=== PATIENT | female | born 1985 | race Hispanic/Latino ===

== ENCOUNTER 2017-10-27 14:53 | Emergency (ER) | payer BC ==
--- NOTE | 2017-10-27 15:53 | RAD REPORT ---
EXAM DESCRIPTION: CT - Head Brain Wo Cont - 10/27/2017 3:45 pm CLINICAL HISTORY: Numbness and dizziness COMPARISON: None. TECHNIQUE: Computed axial tomography of the head was obtained. IV contrast was not requested. All CT scans are performed using dose optimization technique as appropriate and may include automated exposure control or mA/KV adjustment according to patient size. FINDINGS: An intracranial bleed is not seen . The ventricles are normal in caliber. No extra-axial fluid collection is noted. Fluid within the sinuses/ mastoids is not seen. IMPRESSION: No acute intracranial abnormality is seen. If patient's symptoms persist MRI of the bra in would be recommended.
[2017-10-27] MEDS ORDERED: MECLIZINE HCL 12.5 MG TAB ONE (16:06)
[2017-10-27] MEDS ORDERED: NA CHLORIDE 0.9% 1,000 ML ONE ×2 (16:06→16:46)
[2017-10-27 16:24] LABS: Absolute Lymphocytes (CBC) 1.7 K/uL (0.7-4.9); Absolute Monocytes 0.5 K/uL (0.1-1.3); Absolute Neutrophil 5.4 K/uL (1.8-8.0); Basophils % 0.7 % (0-1.3); Eosinophils % 2.1 % (0-4.4); Hematocrit 43.6 % (36.0-45.0); Lymphocytes % 22.2 % (15.3-44.8); MCH 29.3 pg (27.0-35.0); MCV 86.7 fL (80-100); MPV 7.9 fL (7.6-11.3); Monocytes % 6.5 % (3.3-12.3); RBC Red Blood Cell Count 5.03 M/uL (3.86-4.86)
[2017-10-27 16:27] LABS: Urine Blood NEGATIVE (NEG); Urine Glucose NEGATIVE (NEG); Urine Protein NEGATIVE (NEG); Urine Specific Gravity 1.025 (1.005-1.030); Urine pH 6.5 (5.0-7.0)
[2017-10-27 16:32] LABS: Protime INR 0.95
--- NOTE | 2017-10-27 16:34 | RAD REPORT ---
EXAM DESCRIPTION: RAD - Chest Single View - 10/27/2017 4:24 pm CLINICAL HISTORY: Dizziness, cough, shortness of breath, hypertension COMPARISON: August 2009 TECHNIQUE: AP portable chest image was obtained 1611 hours . FINDINGS: Lungs are clear. Heart and vasculature are normal. No measurable pleural effusion and no p neumothorax. No gross bony abnormality seen. No acute aortic findings suspected. IMPRESSION: No acute cardiopulmonary process. No suspicious change from comparison.
[2017-10-27] MEDS ORDERED: cloNIDine HCl 0.1 MG TAB ONE (16:45)
[2017-10-27] MEDS ORDERED: ASPIRIN 81 MG CHEWABLE TABLET ONE (16:46)
[2017-10-27] MEDS ORDERED: ONDANSETRON 4 MG/2 ML VIAL ONE (16:46)
--- NOTE | 2017-10-27 16:53 | RAD REPORT ---
EXAM DESCRIPTION: MRI - Brain Wo Cont - 10/27/2017 4:42 pm CLINICAL HISTORY: Headache, dizziness, left lower extremity numbness and tingling, possible CVA COMPARISON: CT head October 27 TECHNIQUE: Sagittal T1-weighted images were obtained along with axial PD, heavily T2-weighted and T2 -FLAIR images. Axial DWI and ADC mapping sequences were also obtained along with coronal heavily T2-w eighted images. FINDINGS: No intracranial hemorrhage, mass or acute infarction. There is no edema or shift of midlin e structures. No extra-axial fluid collections. Peters-matter/white matter junction is preserved. Signa l voids are seen as a normal finding in the major intracranial vessels. No tonsillar ectopia. No sell a or supra sella abnormality. No white matter signal abnormality seen. No globe or orbital content abnormality. Mastoid air cells and paranasal sinuses are clear. IMPRESSION: Negative non-contrast MRI of the Brain.
[2017-10-27 17:27] LABS: ALT/SGPT 78 U/L (12-78); AST/SGOT 37 U/L (15-37); Albumin 3.6 g/dL (3.4-5.0); Alkaline Phosphatase 146 U/L (45-117); BUN Blood Urea Nitrogen 14 mg/dL (7-18); Bicarbonate 31 mmol/L (21-32); Bilirubin Direct < 0.1 mg/dL (0-0.2); Bilirubin Total 0.3 mg/dL (0.2-1.0); CKMB Creatine Kinase MB < 1.0 ng/mL (0.3-3.6); Creatine Phosphokinase 39 U/L (26-192); Glucose Level 87 mg/dL (74-106); Magnesium 2.1 mg/dL (1.8-2.4); Potassium 3.6 mmol/L (3.5-5.1); Protein, Total 6.8 g/dL (6.4-8.2); Sodium Level 138 mmol/L (136-145)
--- NOTE | 2017-10-27 18:42 | EDPHYS ---
Physician Documentation [facility] Name: Lisa Amor Age: 31 yrs Sex: Female : 1985 Arrival Date: 10/27/2017 Time: 14:56 Bed 23 Private MD: Tyler Gutierrez H ED Physician Rishi Camp HPI: 10/27 15:18 This 31 yrs old Female presents to ER via Ambulatory with complaints of Blood cp Pressure Problem, Vertigo. 15:18 The patient presents with dizziness, lightheadedness. Onset: The symptoms/episode cp began/occurred 2 day(s) ago. Associated signs and symptoms: Pertinent positives: tingling of left foot since yesterday, headache, elevated blood pressure. Severity of symptoms: in the emergency department the symptoms are unchanged despite home interventions. Patient's baseline: Neuro: alert and fully oriented, Motor: no deficits, Ambulation: walks without assistance, Speech: normal. 15:18 Patient reports she has been monitoring blood pressure and observed that it has been cp elevated lately. Historical: - Allergies: 15:23 No Known Allergies; aj1 - Home Meds: 15:23 None [Active]; aj1 - PMHx: 15:23 None; aj1 - PSHx: 15:23 None; aj1 - Immunization history:: Flu vaccine is not up to date. - Social history:: Smoking status: Patient/guardian denies using tobacco. - Ebola Screening: : Patient denies travel to an Ebola-affected area in the 21 days before illness onset. ROS: 15:25 Constitutional: Negative for body aches, chills, fever, poor PO intake. cp 15:25 Eyes: Negative for injury, pain, redness, and discharge. cp 15:25 ENT: Negative for drainage from ear(s), ear pain, sore throat, difficulty swallowing, cp difficulty handling secretions. 15:25 Cardiovascular: Negative for chest pain, edema, palpitations. 15:25 Respiratory: Negative for cough, shortness of breath, wheezing. cp 15:25 Abdomen/GI: Negative for abdominal pain, vomiting, diarrhea, constipation, black/tarry stool, rectal bleeding. 15:25 : Negative for urinary symptoms. 15:25 Skin: Negative for cellulitis, rash. 15:25 Neuro: Positive for dizziness, headache, Negative for gait disturbance, syncope, near syncope, weakness. 15:25 Neuro: Positive for tingling, of the left foot. 15:25 All other systems are negative. Exam: 15:33 Constitutional: The patient appears in no acute distress, alert, awake, non-toxic, well cp developed, well nourished. 15:33 Head/Face: Normocephalic, atraumatic. cp 15:33 Eyes: Pupils equal round and reactive to light, extra-ocular motions intact. Lids and cp lashes normal. Conjunctiva and sclera are non-icteric and not injected. Cornea within normal limits. Periorbital areas with no swelling, redness, or edema. ENT: Nares patent. No nasal discharge, no septal abnormalities noted. Tympanic membranes are normal and external auditory canals are clear. Oropharynx with no redness, swelling, or masses, exudates, or evidence of obstruction, uvula midline. Mucous membranes moist. Neck: Trachea midline, no thyromegaly or masses palpated, and no cervical lymphadenopathy. Supple, full range of motion without nuchal rigidity, or vertebral point tenderness. No Meningismus. Chest/axilla: Normal chest wall appearance and motion. Nontender with no deformity. No lesions are appreciated. 15:33 Cardiovascular: Rate: normal, Rhythm: regular, Pulses: Pulses are 2+ in right radial artery and left radial artery. Heart sounds: murmur, not appreciated, Edema: is not appreciated, JVD: is not appreciated. 15:33 Respiratory: the patient does not display signs of respiratory distress, Respirations: normal, no use of accessory muscles, no retractions, no splinting, no tachypnea, labored breathing, is not present, Breath sounds: are clear throughout, no decreased breath sounds, no stridor, no wheezing. 15:33 Abdomen/GI: Inspection: abdomen appears normal, Bowel sounds: active, all quadrants, Palpation: abdomen is soft and non-tender, in all quadrants, rebound tenderness, is not appreciated, voluntary guarding, is not appreciated, involuntary guarding, is not appreciated. 15:33 Back: pain, is absent, ROM is normal. 15:33 Musculoskeletal/extremity: the left foot Tingling of extremity. 15:33 Skin: cellulitis, is not appreciated, no rash present. 15:33 Neuro: Orientation: to person, place \T\ time. Mentation: lucid, able to follow commands, cp Cerebellar function: is grossly normal, Motor: is normal. 15:42 ECG was reviewed by the Attending Physician. cp Vital Signs: 15:23 BP 170 / 130; Pulse 88; Resp 18; Pulse Ox 99% ; aj1 15:50 BP 153 / 103 Supine; Pulse 80; Resp 18; Pulse Ox 97% ; aj1 15:52 BP 160 / 105 Sitting; Pulse 90; Resp 18; Pulse Ox 99% ; aj1 15:54 BP 153 / 108 Standing; Pulse 95; Resp 20; Pulse Ox 100% ; aj1 16:55 BP 157 / 119; Pulse 54; Resp 18; Pulse Ox 98% on R/A; aj1 18:07 BP 120 / 89; Pulse 81; Resp 18; Pulse Ox 100% on R/A; aj1 19:10 BP 124 / 89; Pulse 90; Resp 18; Pulse Ox 99% ; Pain 0/10; ea MDM: 15:14 Patient medically screened. cp 16:00 Differential diagnosis: cardiac arrhythmia, CVA, generalized weakness, hypovolemia, cp idiopathic dizziness, TIA, vertigo. 18:40 Data reviewed: vital signs, nurses notes, lab test result(s), EKG, radiologic studies, cp CT scan, MRI. 18:40 Test interpretation: by ED physician or midlevel provider: ECG. Counseling: I had a cp detailed discussion with the patient and/or guardian regarding: the historical points, exam findings, and any diagnostic results supporting the discharge/admit diagnosis, the presence of at least one elevated blood pressure reading (>120/80) during this emergency department visit, lab results, radiology results, the need for outpatient follow up, a family practitioner, to return to the emergency department if symptoms worsen or persist or if there are any questions or concerns that arise at home. 18:40 Response to treatment: the patient's symptoms have markedly improved after treatment, cp and as a result, I will discharge patient. 10/27 15:30 Order name: Basic Metabolic Panel; Complete Time: 18:29 cp 10/27 18:29 Interpretation: Within normal limits. cp 10/27 15:30 Order name: CBC with Diff; Complete Time: 16:41 cp 10/27 16:41 Interpretation: Normal except: RBC 5.03. cp 10/27 15:30 Order name: Ckmb; Complete Time: 18:29 10/27 15:30 Order name: CPK; Complete Time: 18:29 10/27 15:30 Order name: LFT's; Complete Time: 18:29 10/27 18:29 Interpretation: Normal except: ALK 146. 10/27 15:30 Order name: Magnesium; Complete Time: 18:29 10/27 18:29 Interpretation: MG 2.1; Reviewed. 10/27 15:30 Order name: CT Head Brain wo Cont; Complete Time: 16:07 10/27 16:08 Interpretation: Report reviewed. 10/27 15:30 Order name: PT-INR; Complete Time: 16:41 10/27 15:30 Order name: Ptt, Activated; Complete Time: 16:41 10/27 15:30 Order name: Troponin (emerg Dept Use Only); Complete Time: 16:57 10/27 16:58 Interpretation: TROPED < 0.02; Reviewed. 10/27 15:30 Order name: XRAY Chest (1 view); Complete Time: 16:41 10/27 16:41 Interpretation: Report review. 10/27 15:57 Order name: Urine Dipstick--Ancillary (enter results); Complete Time: 16:41 10/27 16:41 Interpretation: Normal except: UESTR TRACE. 10/27 15:57 Order name: Urine --Ancillary (enter results); Complete Time: 16:41 10/27 16:58 Order name: UDS 10/27 15:14 Order name: Orthostatics; Complete Time: 17:04 10/27 15:15 Order name: Urine Dipstick-Ancillary (obtain specimen); Complete Time: 15:56 10/27 15:15 Order name: Urine Test (obtain specimen); Complete Time: 15:56 10/27 15:30 Order name: EKG; Complete Time: 15:31 10/27 15:30 Order name: Cardiac monitoring; Complete Time: 15:56 10/27 15:30 Order name: EKG - Nurse/Tech; Complete Time: 15:56 10/27 15:30 Order name: IV Saline Lock; Complete Time: 17:03 10/27 16:11 Order name: MRI - Brain Wo Cont; Complete Time: 16:57 10/27 18:30 Interpretation: Report reviewed. 10/27 15:30 Order name: Labs collected and sent; Complete Time: 17:03 10/27 15:30 Order name: O2 Per Protocol; Complete Time: 15:56 10/27 15:30 Order name: O2 Sat Monitoring; Complete Time: 15:56 cp EC:42 Rate is 82 beats/min. Rhythm is regular. NV interval is normal. QRS interval is normal. cp QT interval is normal. No ST changes noted. Interpreted by me. Reviewed by me. Administered Medications: 16:07 Drug: NS 0.9% 1000 ml Route: IV; Rate: 1 bolus; Site: right antecubital; rk2 19:17 Follow up: Response: No adverse reaction; IV Status: Completed infusion ea 16:07 Drug: Meclizine 25 mg Route: PO; rk2 19:17 Follow up: Response: No adverse reaction; Marked relief of symptoms ea 16:40 CANCELLED (Physician Discretion): cloNIDine 0.2 mg PO once cp 16:51 Drug: Aspirin Chewable Tablet 324 mg Route: PO; aj1 19:16 Follow up: Response: No adverse reaction ea 16:51 Drug: NS 0.9% 1000 ml Route: IV; Rate: 125 ml/hr; Site: right antecubital; aj1 19:15 Follow up: Response: No adverse reaction; IV Status: Completed infusion; IV Intake: ea 250ml 16:51 Drug: Zofran 4 mg Route: IVP; Site: right antecubital; aj1 19:16 Follow up: Response: No adverse reaction; Marked relief of symptoms ea 16:52 Drug: cloNIDine 0.1 mg Route: PO; aj1 19:15 Follow up: Response: No adverse reaction; Marked relief of symptoms; Blood pressure is ea lowered 19:12 Not Given (Hemodynamic Parameters): Norvasc 5 mg PO once ea Disposition: 10/27/17 18:41 Discharged to Home. Impression: Hypertensive heart disease. - Condition is Stable. - Discharge Instructions: Hypertension, How to Take Your Blood Pressure, Vyok-ba-Xiiw, Aspirin and Your Heart, DASH Eating Plan, Managing Your High Blood Pressure. - Prescriptions for Norvasc 5 mg Oral Tablet - take 1 tablet by ORAL route once daily; 20 tablet. - Medication Reconciliation Form, Thank You Letter, Antibiotic Education, Prescription Opioid Use form. - Follow up: Tyler Gutierrez DO; When: 1 - 2 days; Reason: Recheck today's complaints. - Problem is new. - Symptoms have improved. Addendum: 10/29/2017 07:19 Co-signature as Attending Physician, Rishi Camp MD. r n Signatures: Dispatcher [employer] EDMS Heather Morales RN RN aj1 Rishi Camp MD MD rn Page, Corey, PA PA cp Giovana Roman RN RN Lianne Cabral RN RN rk2 Corrections: (The following items were deleted from the chart) 10/27 16:40 16:16 cloNIDine 0.2 mg PO once ordered. cp cp 18:42 18:41 10/27/2017 18:41 Discharged to Home. Impression: Elevated blood-pressure reading, cp without diagnosis of hypertension. Condition is Stable. Forms are Medication Reconciliation Form, Thank You Letter, Antibiotic Education, Prescription Opioid Use. Follow up: Tyler Gutierrez; When: 1 - 2 days; Reason: Recheck today's complaints. Problem is new. Symptoms have improved. cp 19:17 18:42 10/27/2017 18:41 Discharged to Home. Impression: Hypertensive heart disease. ea Condition is Stable. Discharge Instructions: Hypertension, How to Take Your Blood Pressure, Ilgl-kr-Sdth, Aspirin and Your Heart, DASH Eating Plan, Managing Your High Blood Pressure. Prescriptions for Norvasc 5 mg Oral Tablet - take 1 tablet by ORAL route once daily; 20 tablet. and Forms are Medication Reconciliation Form, Thank You Letter, Antibiotic Education, Prescription Opioid Use. Follow up: Tyler Gutierrez; When: 1 - 2 days; Reason: Recheck today's complaints. Problem is new. Symptoms have improved. cp
--- NOTE | 2017-10-27 18:42 | ER ---
Nurse's Notes [facility] Name: Lisa Amor Age: 31 yrs Sex: Female : 1985 Arrival Date: 10/27/2017 Time: 14:56 Bed 23 Private MD: Tyler Gutierrez H Diagnosis: Hypertensive heart disease Presentation: 10/27 15:22 Presenting complaint: Patient states: Vertigo, high blood pressure and headache since aj1 Thursday. Yesterday she started having numbness in the left foot and pain in the back of her neck. Denies fever. Transition of care: patient was not received from another setting of care. Onset of symptoms was October 25, 2017. Risk Assessment: Do you want to hurt yourself or someone else? Patient reports no desire to harm self or others. Initial Sepsis Screen: Does the patient meet any 2 criteria? No. Patient's initial sepsis screen is negative. Does the patient have a suspected source of infection? No. Patient's initial sepsis screen is negative. Care prior to arrival: None. 15:22 Method Of Arrival: Ambulatory aj1 15:22 Acuity: DEREK 3 aj1 Triage Assessment: 15:23 General: Appears uncomfortable, Behavior is calm, cooperative, appropriate for age. aj1 Pain: Complains of pain in head Pain does not radiate. Pain currently is 6 out of 10 on a pain scale. Quality of pain is described as aching, throbbing, Pain began 1 day ago. Is intermittent, Alleviated by sleeping Aggravated by movement. Historical: - Allergies: 15:23 No Known Allergies; aj1 - Home Meds: 15:23 None [Active]; aj1 - PMHx: 15:23 None; aj1 - PSHx: 15:23 None; aj1 - Immunization history:: Flu vaccine is not up to date. - Social history:: Smoking status: Patient/guardian denies using tobacco. - Ebola Screening: : Patient denies travel to an Ebola-affected area in the 21 days before illness onset. Screenin:45 Abuse screen: Denies threats or abuse. Denies injuries from another. Nutritional aj1 screening: No deficits noted. Tuberculosis screening: No symptoms or risk factors identified. Assessment: 15:45 General: Appears in no apparent distress. uncomfortable, Behavior is calm, cooperative, aj1 appropriate for age. Pain: Complains of pain in head Pain does not radiate. Pain currently is 6 out of 10 on a pain scale. Quality of pain is described as aching, throbbing, Is intermittent, Alleviated by sleeping Aggravated by movement. Neuro: Level of Consciousness is awake, alert, obeys commands, Oriented to person, place, time, situation, Black Top Spreader Machine Operator are equal bilaterally Moves all extremities. Full function Gait is steady, Speech is normal, Facial symmetry appears normal, Pupils are PERRLA, Numbness in left foot. Cardiovascular: Patient's skin is warm and dry. Respiratory: Airway is patent Respiratory effort is even, unlabored, Respiratory pattern is regular, symmetrical. GI: No signs and/or symptoms were reported involving the gastrointestinal system. : No signs and/or symptoms were reported regarding the genitourinary system. EENT: No signs and/or symptoms were reported regarding the EENT system. Derm: No signs and/or symptoms reported regarding the dermatologic system. Skin is pink, warm \T\ dry. normal. Musculoskeletal: No signs and/or symptoms reported regarding the musculoskeletal system. Circulation, motion, and sensation intact. 16:55 Reassessment: Patient appears in no apparent distress at this time. No changes from aj1 previously documented assessment. Patient and/or family updated on plan of care and expected duration. Pain level reassessed. Patient is alert, oriented x 3, equal unlabored respirations, skin warm/dry/pink. 18:07 Reassessment: Patient appears in no apparent distress at this time. No changes from aj1 previously documented assessment. Patient and/or family updated on plan of care and expected duration. Pain level reassessed. Patient is alert, oriented x 3, equal unlabored respirations, skin warm/dry/pink. 19:12 Reassessment: Patient and/or family updated on plan of care and expected duration. Pain ea level reassessed. Patient is alert, oriented x 3, equal unlabored respirations, skin warm/dry/pink. Discharge instructions given to patient, verbalized the understanding of instruction. Vital Signs: 15:23 BP 170 / 130; Pulse 88; Resp 18; Pulse Ox 99% ; aj1 15:50 BP 153 / 103 Supine; Pulse 80; Resp 18; Pulse Ox 97% ; aj1 15:52 BP 160 / 105 Sitting; Pulse 90; Resp 18; Pulse Ox 99% ; aj1 15:54 BP 153 / 108 Standing; Pulse 95; Resp 20; Pulse Ox 100% ; aj1 16:55 BP 157 / 119; Pulse 54; Resp 18; Pulse Ox 98% on R/A; aj1 18:07 BP 120 / 89; Pulse 81; Resp 18; Pulse Ox 100% on R/A; aj1 19:10 BP 124 / 89; Pulse 90; Resp 18; Pulse Ox 99% ; Pain 0/10; ea ED Course: 14:56 Patient arrived in ED. sb2 14:57 Tyler Gutierrez DO is Private Physician. sb2 15:14 Manjit Galarza PA is PHCP. cp 15:14 Rishi Capm MD is Attending Physician. cp 15:17 Heather Morales, ERIKA is Primary Nurse. aj1 15:23 Triage completed. aj1 15:23 Arm band placed on. aj1 15:41 CT completed. Patient tolerated procedure well. Patient moved to CT via wheelchair. mw3 Patient moved back from CT. 15:45 CT Head Brain wo Cont In Process Unspecified. EDMS 15:45 Patient has correct armband on for positive identification. Placed in gown. Bed in low aj1 position. Call light in reach. 15:45 No provider procedures requiring assistance completed. Initial lab(s) drawn, by belkis oro sent to lab. Inserted saline lock: 20 gauge in right antecubital area, using aseptic technique. Blood collected. 15:47 EKG done, by division order technician. reviewed by Manjit DUONG. at1 16:24 XRAY Chest (1 view) In Process Unspecified. EDMS 16:29 Patient moved to MRI via wheelchair. ka 16:31 MRI - Brain Wo Cont In Process Unspecified. EDMS 18:40 Tyler Gutierrez DO is Referral Physician. cp 19:13 IV discontinued, intact, bleeding controlled, No redness/swelling at site. Pressure ea dressing applied. Administered Medications: 16:07 Drug: NS 0.9% 1000 ml Route: IV; Rate: 1 bolus; Site: right antecubital; rk2 19:17 Follow up: Response: No adverse reaction; IV Status: Completed infusion ea 16:07 Drug: Meclizine 25 mg Route: PO; rk2 19:17 Follow up: Response: No adverse reaction; Marked relief of symptoms ea 16:40 CANCELLED (Physician Discretion): cloNIDine 0.2 mg PO once cp 16:51 Drug: Aspirin Chewable Tablet 324 mg Route: PO; [facility] 19:16 Follow up: Response: No adverse reaction ea 16:51 Drug: NS 0.9% 1000 ml Route: IV; Rate: 125 ml/hr; Site: right antecubital; [facility] 19:15 Follow up: Response: No adverse reaction; IV Status: Completed infusion; IV Intake: ea 250ml 16:51 Drug: Zofran 4 mg Route: IVP; Site: right antecubital; [facility] 19:16 Follow up: Response: No adverse reaction; Marked relief of symptoms ea 16:52 Drug: cloNIDine 0.1 mg Route: PO; [facility] 19:15 Follow up: Response: No adverse reaction; Marked relief of symptoms; Blood pressure is ea lowered 19:12 Not Given (Hemodynamic Parameters): Norvasc 5 mg PO once ea Intake: 19:15 IV: 250ml; Total: 250ml. ea Outcome: 18:41 Discharge ordered by . cp 19:13 Condition: improved ea 19:13 Discharge instructions given to patient, Instructed on discharge instructions, follow up and referral plans. medication usage, Demonstrated understanding of instructions, follow-up care, medications, Prescriptions given X 1. 19:14 Discharged to home ambulatory, with significant other. ea 19:17 Patient left the ED. ea Signatures: Dispatcher [employer] EDMS Heather Morales RN RN aj1 Yajaira lopez, compensation agent EKG Tat1 Manjit Galarza PA PA cp Aguilera, Katelyn ka Antunez, Elena, RN RN ea Kidder, Rhonda, RN RN rk2 Donna Blanco2 Theodora Felix mw3
[2017-10-27] MEDS ORDERED: AMLODIPINE 5 MG TAB ONE (19:01)
[2017-10-27 19:16] LABS: Barbiturates NEGATIVE (NEGATIVE); Benzodiazepines NEGATIVE (NEGATIVE); Cocaine NEGATIVE (NEGATIVE); METHAMPHETAM NEGATIVE (NEGATIVE); Methadone NEGATIVE (NEGATIVE); Opiates NEGATIVE (NEGATIVE); Phencyclidine NEGATIVE (NEGATIVE); THC Cannibis NEGATIVE (NEGATIVE)
[2017-10-27 19:42] VITALS: BP 124/89; O2SAT 99
--- NOTE | 2017-10-28 10:42 | EKG ---
Test Date: 2017-10-27 Test Time: 15:37:20 Storm Sash Maker: SHELBIE MEASUREMENT RESULTS: Intervals: Rate: 82 UT: 122 QRSD: 94 QT: 364 QTc: 425 [place]: P: 53 UT: 122 QRS: 22 T: 48 INTERPRETIVE STATEMENTS: Normal sinus rhythm Normal ECG No previous ECG available for comparison Electronically Signed On 10-28-17 10:41:19 CDT by Osmany Horta
== END 2017-10-27 19:17 | disposition home or self-care (01) ==
LOC: ER 14:53
DX: I11.9 Hypertensive heart disease without heart failure (principal)
CPT/HCPCS: 36415; 70450; 70551; 71045; 80048; 80076; 80307; 81003; 81025; 82550; 82553; 83735; 84484; 85025; 85610; 85730; 93005; 96361; 96374; 99284; J2405; J7030

== ENCOUNTER 2022-06-25 18:33 | Emergency (ER) | payer OTHER ==
--- OUTSIDE RECORDS SUMMARY | 2022-06-25 18:38 | XMS REPORT | Continuity of Care Document ---
:1985 Author Organization [facility] t Address [address] [place] [id number] Care Team Providers Name Role Phone AL STARR Attending Clinician Unavailable GIO EDWARD Attending Clinician Unavailable Payers Payer Name Policy Type Policy Number Effective Date Expiration Date S cheryl [employer] 2 [id number] 2022 00:00:00 Problems Condition Condition Condition Status Onset Resolution Last Treating Co mments Source Name Details Category Date Date Treatment Clinician Date Overweight Overweight Disease Active K elsey (BMI (BMI 2-14 Seybold 25.0-29.9) 25.0-29.9) 00:00: - 00 Externa l Primary Primary Disease Active Almaz hypertensi hypertensi 2-14 Se ybold on on 00:00: - 00 Externa l Allergies, Adverse Reactions, Alerts This patient has no known allergies or adverse reactions. Social History Social Habit Start Date Stop Date Quantity Comments Source History SDOH Almaz dennison Alcohol Frequency - Exter nal History SDOH Almaz Oreilly ld Alcohol Std - External Drinks History NICO dennison Alcohol Binge - External Alcohol Comment 2022-06-24 2022-06-24 occasionally Almaz Jacobsen 00:00:00 00:00:00 - External Education 2022-06-24 2022-06-24 13 Almaz Langfordybzakia 00:00:00 00:00:00 - External Tobacco use and 2022-06-24 2022-06-24 Smokeless tobacco Ke noreen Langfordybold exposure 00:00:00 00:00:00 non-user - External Alcohol intake 2022-06-24 2022-06-24 Current drinker of [place] Jacobsen 00:00:00 00:00:00 alcohol (finding) - Exter nal Sex [birth year] At [birth year] Almaz tomas 00:00:00 00:00:00 - External Smoking Status Start Date Stop Date Source Never smoked tobacco Almaz koehler - External Medications Ordered Filled Start Stop Current Ordering Indication Dosage Frequency Signature Comments Components Source Medication Medication Date Date Medication? Clinician (SIG) Name Name LISINOPRIL- Yes [id number] 1{tbl} Take 1 Almaz HCTZ 2-14 tablet by ybold 10-12.5 MG 00:00: mouth - oral Tablet 00 daily Externa l Vital Signs Vital Name Observation Time Observation Value Comments Source Systolic blood 2022-06-24 22:10:00 159 mm[Hg] Almaz ybold - pressure External Diastolic blood 2022-06-24 22:10:00 112 mm[Hg] Angela robles Seybold - pressure External Heart rate 2022-06-24 22:10:00 89 /min Almaz Blanchard parasbold - External Respiratory rate 2022-06-24 22:10:00 14 /min Vivian crain ybold - External Body height 2022-06-24 22:10:00 160 cm Almaz Blanchard parasbojuma - External Body weight 2022-06-24 22:10:00 71.668 kg Almaz Blanchard parasbold - External BMI 2022-06-24 22:10:00 27.99 kg/m2 Almaz Blanchard parasbojuma - External Oxygen saturation in 2022-06-24 22:10:00 99 /min Almaz Jacobsen - Arterial blood by External Pulse oximetry Procedures This patient has no known procedures. Encounters Start End Encounter Admission Attending Care Care Encounter Source Date/Time Date/Time Type Type Clinicians Facility Department ID 2022-07-07 2022-07-07 Outpatient ALMAZ STARR [id number] Almaz 11:00:00 11:00:00 AL de jesus 2022-06-24 2022-06-24 Outpatient ALMAZ STARR [id number] Almaz 16:00:00 16:00:00 AL de jesus 2022-06-23 2022-06-23 Outpatient RAPHAEL FERGUSON [id number] Almaz 11:30:00 11:30:00 Se genoveva LOVING Results This patient has no known results.
[2022-06-25 19:58] LABS: Urine Blood Negative (Negative); Urine Glucose Negative (Negative); Urine Protein Trace (Negative); Urine Specific Gravity >=1.030 (1.005-1.030); Urine pH 5.5 (5.0-7.0)
[2022-06-25 20:00] LABS: Absolute Lymphocytes (CBC) 2.5 K/uL (0.7-4.9); Hematocrit 37.3 % (36.0-45.0); Lymphocytes % 29.9 % (15.3-44.8); MCV 82.3 fL (80-100); MPV 7.3 fL (7.6-11.3); RBC Red Blood Cell Count 4.53 M/uL (3.86-4.86)
--- NOTE | 2022-06-25 20:05 | RAD REPORT ---
EXAM DESCRIPTION: CT - Head Brain Wo Cont - 06/25/2022 7:53 pm CLINICAL HISTORY: HEADACHE COMPARISON: <Comparisons> TECHNIQUE: All CT scans are performed using dose optimization technique as appropriate and may inclu de automated exposure control or mA/KV adjustment according to patient size. FINDINGS: No intracranial hemorrhage, hydrocephalus or extra-axial fluid collection.No areas of brai n edema or evidence of midline shift. The paranasal sinuses and mastoids are clear. The calvarium is intact. IMPRESSION: No acute intracranial abnormality.
[2022-06-25 20:07] LABS: Protime INR 0.85
[2022-06-25 20:29] LABS: Magnesium 2.2 mg/dL (1.6-2.4); Potassium 4.1 mmol/L (3.5-5.1); Troponin High Sensitivity 4.2 pg/mL (<58.9)
--- NOTE | 2022-06-25 21:19 | RAD REPORT ---
EXAM DESCRIPTION: RAD - Chest Single View - 06/25/2022 8:45 pm CLINICAL HISTORY: weakness COMPARISON: Chest Single View dated 10/27/2017; CHEST SINGLE VIEW dated 08/18/2009 FINDINGS: Lines: None. Lungs: No evidence of edema or pneumonia. Pleural: No significant pleural effusions or pneumothorax. Cardiac: The heart size is within normal limits. Mediastinum: Within normal limits. Bones: No acute fractures. Other: None IMPRESSION: No acute cardiopulmonary disease.
[2022-06-25] MEDS ORDERED: lisinopriL 20 MG TAB ONE (22:01)
--- NOTE | 2022-06-25 22:31 | EDPHYS ---
Physician Documentation [facility] Name: Lisa Amor Age: 36 yrs Sex: Female : 1985 Arrival Date: 06/25/2022 Time: 18:37 Bed 20 Private MD: ED Physician Saw Ng HPI: 06/25 19:30 This 36 yrs old Female presents to ER via Ambulatory with complaints of High cp Blood Pressure. 19:30 The patient has elevated blood pressure and discovered this at home, with a home device.cp 19:30 Patient is a 36-year-old female who presents to the emergency department with a known cp history of hypertension. Patient presents with concern of elevated blood pressure this evening of 185/121. Patient states she saw her primary care physician Dr. Funes yesterday who prescribed lisinopril 10 mg/hydrochlorothiazide but has been unable to picker and sorter load and unload prescription from pharmacy due to the pharmacy having to order the prescription. Patient complains of headache dizziness fatigue and mild chest pain. Patient admits to stopping her previously prescribed hypertension medication back in 2020 and felt like it was controlled after losing weight. LINING FELLER: 19:04 LMP 05/2022 kd3 Historical: - Allergies: 19:04 No Known Allergies; kd3 - Immunization history:: Adult Immunizations up to date. - Social history:: Smoking status: Patient denies any tobacco usage or history of. ROS: 19:35 Constitutional: Negative for body aches, chills, fever, poor PO intake. cp 19:35 Eyes: Negative for injury, pain, redness, and discharge. cp 19:35 ENT: Negative for drainage from ear(s), ear pain, sore throat, difficulty swallowing, difficulty handling secretions. 19:35 Cardiovascular: Positive for chest pain, Negative for edema, palpitations. 19:35 Respiratory: Negative for cough, shortness of breath, wheezing. 19:35 Abdomen/GI: Negative for abdominal pain, vomiting, diarrhea, constipation. 19:35 Neuro: Positive for dizziness, headache, Negative for speech changes, syncope, weakness. 19:35 All other systems are negative. Exam: 19:17 ECG was reviewed by the Attending Physician. cp 19:40 Constitutional: The patient appears in no acute distress, alert, awake, cp non-diaphoretic, well developed, well nourished. 19:40 Head/Face: Normocephalic, atraumatic. cp 19:40 Eyes: Periorbital structures: appear normal, Pupils: equal, round, and reactive to light and accomodation, Extraocular movements: intact throughout, Conjunctiva: normal, no exudate, no injection, Sclera: no appreciated abnormality, Lids and lashes: appear normal, bilaterally. 19:40 ENT: External ear(s): are unremarkable, Nose: is normal, Mouth: Lips: moist, Oral mucosa: pink and intact, moist, Posterior pharynx: is normal, airway is patent, no erythema, no exudate. 19:40 Neck: ROM/movement: is normal, is supple, without pain, no range of motions limitations, no nuchal rigidity. 19:40 Chest/axilla: Inspection: normal. 19:40 Cardiovascular: Rate: normal, Rhythm: regular, Heart sounds: murmur, not appreciated, Edema: is not appreciated, JVD: is not appreciated. 19:40 Respiratory: the patient does not display signs of respiratory distress, Respirations: normal, no use of accessory muscles, no retractions, labored breathing, is not present, Breath sounds: are clear throughout, no decreased breath sounds, no stridor, no wheezing. 19:40 Abdomen/GI: Inspection: abdomen appears normal, Palpation: abdomen is soft and non-tender, in all quadrants. 19:40 Back: pain, is absent, ROM is normal. 19:40 Neuro: Orientation: to person, place \T\ time. Mentation: is normal, Cerebellar function: is grossly normal, Motor: moves all fours, strength is normal, Sensation: is normal. Vital Signs: 19:01 Weight 71.67 kg; Height 5 ft. 3 in. (160.02 cm); Pain 0/10; kd3 19:06 BP 156 / 119; Pulse 80; Resp 19; Temp 98.1(O); Pulse Ox 99% ; kd3 21:25 BP 164 / 111; Pulse 72; Resp 19; Pulse Ox 99% on R/A; lg3 23:28 BP 133 / 95; Pulse 76; Resp 15; Pulse Ox 98% on R/A; lg3 19:01 Body Mass Index 27.99 (71.67 kg, 160.02 cm) kd3 MDM: 19:16 Patient medically screened. cp 20:00 Differential diagnosis: hypertensive crisis, Malignant HTN, CVA, intracerebral cp hemorrhage. 22:27 Data reviewed: vital signs, nurses notes, lab test result(s), EKG, radiologic studies, cp CT scan. Consideration of Admission/Observation Escalation of care including admission/observation considered. I considered the following discharge prescriptions or medication management in the emergency department Medications were administered in the Emergency Department. See MAR. Independent interpretation of the following test(s) in the Emergency Department EKG: See my EKG interpretation above X-Ray: My interpretation is chest xray negative for infiltrates. Response to treatment: the patient's symptoms have mildly improved after treatment, and as a result, I will discharge patient. ED course: VS noted. Patient reports pharmacy reports RX for Lisinopril 10 mg should be ready for picker and sorter load and unload tomorrow. 06/25 19:18 Order name: Basic Metabolic Panel 06/25 19:18 Order name: CBC with Diff 06/25 19:18 Order name: Magnesium 06/25 19:18 Order name: PT-INR 06/25 19:18 Order name: Troponin HS 06/25 19:58 Order name: Urine Dipstick-Ancillary; Complete Time: 21:22 EDMS 06/25 19:18 Order name: CT Head Brain wo Cont 06/25 19:18 Order name: XRAY Chest (1 view) 06/25 20:01 Order name: CBC with Automated Diff; Complete Time: 21:22 EDMS 06/25 20:08 Order name: Protime (+INR); Complete Time: 21:22 EDMS 06/25 20:30 Order name: Basic Metabolic Panel; Complete Time: 21:22 EDMS 06/25 20:30 Order name: Troponin High Sensitivity; Complete Time: 21:22 EDMS 06/25 20:30 Order name: Magnesium; Complete Time: 21:22 EDMS 06/25 19:18 Order name: EKG; Complete Time: 19:19 cp 06/25 19:18 Order name: Cardiac monitoring; Complete Time: 21:06 06/25 19:18 Order name: EKG - Nurse/Tech; Complete Time: 19:24 cp 06/25 19:18 Order name: IV Saline Lock; Complete Time: 19:51 cp 06/25 19:18 Order name: Labs collected and sent; Complete Time: 19:51 cp 06/25 19:18 Order name: O2 Per Protocol; Complete Time: 21:06 cp 06/25 19:18 Order name: O2 Sat Monitoring; Complete Time: 21:06 cp 06/25 19:18 Order name: Urine Test (obtain specimen); Complete Time: 19:51 cp 06/25 19:18 Order name: Urine Dipstick-Ancillary (obtain specimen); Complete Time: 19:51 cp 06/25 20:06 Order name: CT; Complete Time: : EDMS 06/25 21:20 Order name: RAD; Complete Time: :22 EDMS EC: Rate is 80 beats/min. Rhythm is regular. CO interval is normal. QRS interval is normal. cp QT interval is normal. T waves are Inverted in lead aVR. Interpreted by me. Reviewed by me. Administered Medications: 22:01 Drug: Lisinopril 20 mg Route: PO; lg3 23:34 Follow up: Response: No adverse reaction; Blood pressure is lowered lg3 Disposition Summary: 06/25/22 22:30 Discharge Ordered Location: Home cp Problem: new cp Symptoms: have improved cp Condition: Stable cp Diagnosis - Hypertensive heart disease without heart failure cp Followup: cp - With: Private Physician - When: 2 - 3 days - Reason: Worsening of condition Discharge Instructions: - Discharge Summary Sheet cp - Hypertension, Adult cp - Aspirin and Your Heart cp - Form - Blood Pressure Record Sheet cp - How to Take Your Blood Pressure cp Forms: - Medication Reconciliation Form cp - Thank You Letter cp - Antibiotic Education cp - Prescription Opioid Use cp Prescriptions: - Lisinopril 10 mg Oral Tablet - take 1 tablet by ORAL route once daily; 20 tablet; Refills: 0, Product cp Selection Permitted Signatures: Dispatcher [employer]W[facility] Manjit Galarza PA PA cp Barbie Boyce, RN RN lg3 Deepika Patton RN RN kd3
--- NOTE | 2022-06-25 22:31 | ER ---
Nurse's Notes [facility] Name: Lisa Amor Age: 36 yrs Sex: Female : 1985 Arrival Date: 06/25/2022 Time: 18:37 Bed 20 Private MD: Diagnosis: Hypertensive heart disease without heart failure Presentation: 06/25 19:01 Chief complaint: Patient states: I stopped taking my blood pressure medications in 2020 kd3 when i lost some weight and i had been fine. I am not sure why it is acting up now. I have not been under any particular stress recently. I have some new prescriptions but I haven't been able to pick them up. I feel weak with a headache and a little bit of blurry vision. Coronavirus screen: Vaccine status: Patient reports being unvaccinated. Ebola Screen: No symptoms or risks identified at this time. Initial Sepsis Screen: Does the patient meet any 2 criteria? No. Patient's initial sepsis screen is negative. Does the patient have a suspected source of infection? No. Patient's initial sepsis screen is negative. Risk Assessment: Do you want to hurt yourself or someone else? Patient reports no desire to harm self or others. Onset of symptoms was June 25, 2022. 19:01 Method Of Arrival: Ambulatory kd3 19:07 Acuity: DEREK 3 kd3 Triage Assessment: 19:04 General: Appears in no apparent distress. Behavior is calm, cooperative. Pain: Denies kd3 pain. 19:15 Neuro: Level of Consciousness is awake, alert, obeys commands, Oriented to person, kd3 place, time, situation. Cardiovascular: Patient's skin is warm and dry. Respiratory: Airway is patent Trachea midline Respiratory effort is even, unlabored, Respiratory pattern is regular, symmetrical. MARKETING OPERATIONS COORDINATOR: 19:04 LMP 05/2022 kd3 Historical: - Allergies: 19:04 No Known Allergies; kd3 - Immunization history:: Adult Immunizations up to date. - Social history:: Smoking status: Patient denies any tobacco usage or history of. Screenin:15 [facility] ED Fall Risk Assessment (Adult) History of falling in the last 3 months, kd3 including since admission No falls in past 3 months (0 pts) Confusion or Disorientation No (0 pts) Intoxicated or Sedated No (0 pts) Impaired Gait No (0 pts) Mobility Assist Device Used No (0 pt) Altered Elimination No (0 pt) Score/Fall Risk Level 0 - 2 = Low Risk Oriented to surroundings. Abuse screen: Denies threats or abuse. Denies injuries from another. Nutritional screening: No deficits noted. Tuberculosis screening: No symptoms or risk factors identified. Assessment: 21:25 General: Appears in no apparent distress. comfortable, Behavior is calm, cooperative. lg3 Pain: Denies pain. Neuro: No deficits noted. Rincon Agitation-Sedation Scale (RASS): 0 - Alert and Calm Level of Consciousness is awake, alert, obeys commands, Oriented to person, place, time, situation. Cardiovascular: No deficits noted. Denies chest pain, shortness of breath, Capillary refill < 3 seconds Clubbing of nail beds is absent JVD is absent Patient's skin is warm and dry. Respiratory: No deficits noted. Airway is patent Trachea midline Respiratory effort is even, unlabored, Respiratory pattern is regular, symmetrical. GI: No deficits noted. No signs and/or symptoms were reported involving the gastrointestinal system. : No deficits noted. No signs and/or symptoms were reported regarding the genitourinary system. EENT: No deficits noted. No signs and/or symptoms were reported regarding the EENT system. Derm: No deficits noted. No signs and/or symptoms reported regarding the dermatologic system. Skin is intact, is healthy with good turgor, Skin is dry, Skin is normal, Skin temperature is warm. Musculoskeletal: No deficits noted. No signs and/or symptoms reported regarding the musculoskeletal system. Circulation, motion, and sensation intact. Range of motion: intact in all extremities. 23:28 Reassessment: Patient appears in no apparent distress at this time. No changes from lg3 previously documented assessment. Patient and/or family updated on plan of care and expected duration. Pain level reassessed. Patient is alert, oriented x 3, equal unlabored respirations, skin warm/dry/pink. Patient states feeling better. Vital Signs: 19:01 Weight 71.67 kg; Height 5 ft. 3 in. (160.02 cm); Pain 0/10; kd3 19:06 BP 156 / 119; Pulse 80; Resp 19; Temp 98.1(O); Pulse Ox 99% ; kd3 21:25 BP 164 / 111; Pulse 72; Resp 19; Pulse Ox 99% on R/A; lg3 23:28 BP 133 / 95; Pulse 76; Resp 15; Pulse Ox 98% on R/A; lg3 19:01 Body Mass Index 27.99 (71.67 kg, 160.02 cm) kd3 ED Course: 18:37 Patient arrived in ED. rg4 18:42 Manjit Galarza PA is PHCP. cp 18:42 Saw Ng MD is Attending Physician. cp 19:04 Arm band placed on right wrist. kd3 19:07 Triage completed. kd3 19:15 EKG completed in triage. Results shown to MD. kd3 19:16 Patient has correct armband on for positive identification. kd3 19:51 Basic Metabolic Panel Sent. bc6 19:51 CBC with Diff Sent. bc6 19:51 Magnesium Sent. bc6 19:51 PT-INR Sent. bc6 19:51 Troponin HS Sent. bc6 19:51 Inserted saline lock: 20 gauge in left antecubital area, using aseptic technique. bc6 21:11 Barbie Boyce, RN is Primary Nurse. lg3 21:25 Client placed on continuous cardiac and pulse oximetry monitoring. NIBP monitoring lg3 applied. monitor technician on. Door closed. Noise minimized. Warm blanket given. 23:34 No provider procedures requiring assistance completed. IV discontinued, intact, lg3 bleeding controlled, No redness/swelling at site. Pressure dressing applied. Administered Medications: 22:01 Drug: Lisinopril 20 mg Route: PO; lg3 23:34 Follow up: Response: No adverse reaction; Blood pressure is lowered lg3 Medication: 19:16 VIS not applicable for this client. kd3 Outcome: 22:30 Discharge ordered by MD. cp 23:34 Discharged to home ambulatory. lg3 23:34 Condition: stable 23:34 Discharge instructions given to patient, Instructed on discharge instructions, follow up and referral plans. medication usage, Demonstrated understanding of instructions, follow-up care, medications, Prescriptions given X 1. 23:34 Patient left the ED. lg3 Signatures: Manjit Galarza PA PA cp Garcia, Rubi rg4 Barbie Boyce, RN RN lg3 Deepika Patton RN RN kd3 Nita Rankin 6
[2022-06-26 00:23] VITALS: TEMP 98.1
[2022-06-26 00:25] VITALS: BP 133/95; O2SAT 98
--- NOTE | 2022-06-26 11:52 | EKG ---
Test Date: 2022-06-25 Test Time: 19:12:47 Special Population Paraprofessional: ISAURA MEASUREMENT RESULTS: Intervals: Rate: 80 OH: 132 QRSD: 78 QT: 382 QTc: 440 [place]: P: 60 OH: 132 QRS: -6 T: 51 INTERPRETIVE STATEMENTS: Normal sinus rhythm Normal ECG Compared to ECG 10/27/2017 15:37:20 No significant changes Electronically Signed On 06-26-22 11:51:06 CALENDAR CONTROL CLERK BLOOD BANK by Kolby Adams
== END 2022-06-25 23:34 | disposition home or self-care (01) ==
LOC: ER 18:33
DX: I11.9 Hypertensive heart disease without heart failure (principal)
CPT/HCPCS: 36415; 70450; 71045; 80048; 81003; 83735; 84484; 85025; 85610; 93005